=== PATIENT | female | born 1940 | race Caucasian/White ===

== ENCOUNTER 2020-09-30 22:15 | Emergency (ER) | payer MEDICARE, BC ==
[~2020-09-30 22:15] MED LIST: ALDACTONE25 MG PO; AMOX TR-K CLV1 EAC4 PO; ASPIR 8181 MG PO; AUGMENTIN 875-1 EACH PO; BMP Blood Test; CLEOCIN HCL300 MG PO; CORDARONE 200M200 MG PO; ELIQUIS 5 MG TAB5 MG PO; ELIQUIS5 MG PO; FERROUS SULFAT325 M2 PO; FUROSEMIDE40 MG PO; HYDRALAZINE HCL25 MG PO; HYDROCHLOROTHIA25 MG PO; IPRAT-ALBUT 0.5-3 ML INH; LASIX40 MG PO; LEVOTHYROXINE100 MCG PO; LIPITOR TAB 2020 MG PO; LISINOPRIL10 MG PO; LISINOPRIL2.5 MG PO; LOPRESSOR 25 MG25 MG PO; MECLIZINE HCL25 M1 PO; NORCO 5-325 TA1 EACH PO; NORVASC5 MG PO; PLAVIX75 MG PO; PREDNISONE 10 M10 MG PO; PREDNISONE10 M1 PO; PREDNISONE10 MG PO; PREDNISONE20 MG PO; PROTONIX40 MG PO; PULMICORT0.5 MG/21 INH; REQUIP0.25 MG PO; SINGULAIR10 MG PO; SYNTHROID 25 M25 MCG PO; THERAGRAN M TAB1 EA PO; TOPROL XL 25 MG25 MG PO; VENTOLIN HFA 66.7 GM INH; VISTARIL 50 MG50 MG PO; ZAROXOLYN/DIUL2.5 MG PO; ZESTRIL/PRINIVI10 MG PO; ZOFRAN4 MG PO
== END 2020-10-01 02:23 | disposition home or self-care (01) ==
LOC: ER1 22:15
DX: M79.671 Pain in right foot (principal); I48.91 Unspecified atrial fibrillation; I50.9 Heart failure, unspecified; Z88.2 Allergy status to sulfonamides
CPT/HCPCS: 73630; 99283

== ENCOUNTER 2020-10-18 12:18 | Inpatient (IN) | payer MEDICARE, BC ==
[~2020-10-18] VITALS: Ht 154.9 cm; Wt 89.4 kg
[2020-10-18 13:55] LABS: HEMOGLOBIN 9.1 gm/dl (12.3-15.3); RED BLOOD COUNT 3.61 M/UL (4.00-5.10); WHITE BLOOD COUNT 10.3 K/UL (4.5-11.0)
[2020-10-18 14:20] LABS: BUN/CREATININE RATIO 24 (0-10)
[2020-10-18] MEDS ORDERED: POTASSIUM CHLO20 ME1 PO (20:05)
[2020-10-18] MEDS ORDERED: ZAROXOLYN/DIUL2.5 MG PO (20:06)
[2020-10-18] MEDS ORDERED: LASIX40 MG PO (20:12)
[2020-10-18] MEDS ORDERED: HYDRALAZINE HCL25 MG PO (20:13)
[2020-10-19 01:06] LABS: RED BLOOD COUNT 3.53 M/UL (4.00-5.10); WHITE BLOOD COUNT 10.2 K/UL (4.5-11.0)
[2020-10-19 01:32] LABS: BUN/CREATININE RATIO 22 (0-10)
[2020-10-19] MEDS ORDERED: LEVOTHYROXINE75 MCG PO (07:23)
[2020-10-19] MEDS ORDERED: VITAMIN B-122500 MCG SL (20:07)
[2020-10-20 03:38] LABS: HEMOGLOBIN 9.2 gm/dl (12.3-15.3); RED BLOOD COUNT 3.61 M/UL (4.00-5.10); WHITE BLOOD COUNT 11.5 K/UL (4.5-11.0)
[2020-10-20 10:16] LABS: CREATININE, URINE 13.7 mg/dL (Not Estab.); MICROALB/CREAT RATIO <22 (0-29)
[2020-10-23] MEDS ORDERED: LASIX40 MG PO (09:16)
[2020-10-23] MEDS ORDERED: FERROUS SULFAT325 M2 PO (09:16)
[2020-10-23] MEDS ORDERED: STIMULANT LAXA1 EACH PO (09:16)
[2020-10-23] MEDS ORDERED: PREDNISONE 20 M20 MG PO (09:22)
[2020-10-23] MEDS ORDERED: PREDNISONE 5 MG5 MG PO (09:22)
[2020-10-23] MEDS ORDERED: PREDNISONE 10 M10 MG PO (09:22)
[2020-10-23] MEDS ORDERED: PREDNISONE 10 M10 MG GT (09:22)
== END 2020-10-23 13:15 | disposition home health service (06) | DRG 291 ==
LOC: ER1 12:18 → CDU 16:40 → MED SURG 4 16:40
PROVIDERS: Internal Medicine; Internal Medicine Nephrology; ADMIT Internal Medicine
PROC: B24BZZZ Ultrasonography of Heart with Aorta (ICD-10-PCS; principal; 2020-10-20)
DX: I13.0 Hypertensive heart and chronic kidney disease with heart failure and stage 1 through stage 4 chronic kidney disease, or unspecified chronic kidney disease (principal); I50.33 Acute on chronic diastolic (congestive) heart failure; E87.2 Acidosis; N17.9 Acute kidney failure, unspecified; Z68.41 Body mass index [BMI] 40.0-44.9, adult; J96.11 Chronic respiratory failure with hypoxia; Z20.822 Contact with and (suspected) exposure to COVID-19; I27.20 Pulmonary hypertension, unspecified; I34.0 Nonrheumatic mitral (valve) insufficiency; N18.30 Chronic kidney disease, stage 3 unspecified; D50.9 Iron deficiency anemia, unspecified; E66.01 Morbid (severe) obesity due to excess calories; E03.9 Hypothyroidism, unspecified; M10.9 Gout, unspecified; K59.00 Constipation, unspecified; E78.5 Hyperlipidemia, unspecified; I25.10 Atherosclerotic heart disease of native coronary artery without angina pectoris; I48.0 Paroxysmal atrial fibrillation; I25.2 Old myocardial infarction; Z82.49 Family history of ischemic heart disease and other diseases of the circulatory system; Z98.890 Other specified postprocedural states; Z88.1 Allergy status to other antibiotic agents; Z79.82 Long term (current) use of aspirin; E87.6 Hypokalemia
CPT/HCPCS: ECHO; 36415; 36600; 71045; 80048; 80053; 81001; 82043; 82550; 82553; 82570; 82728; 82803; 83540; 83550; 83735; 83874; 83880; 84132; 84156; 84484; 84550; 85025; 85027; 85610; 93005; 93306; 93971; 94640; 94664; 94760; 96365; 96366; 97161; 99285; J1120; J1756; J1940; J7030; U0002

== ENCOUNTER 2020-12-31 11:37 | Inpatient (IN) | payer MEDICARE, BC ==
[~2020-12-31] VITALS: Ht 154.9 cm; Wt 93.5 kg
[~2020-12-31 11:37] MED LIST changes: +LEVOTHYROXINE75 MCG PO; +POTASSIUM CHLO20 ME1 PO; +PREDNISONE 10 M10 MG GT; +PREDNISONE 20 M20 MG PO; +PREDNISONE 5 MG5 MG PO; +STIMULANT LAXA1 EACH PO; +VITAMIN B-122500 MCG SL
[2020-12-31 12:58] LABS: HEMOGLOBIN 10.4 gm/dl (12.3-15.3); RED BLOOD COUNT 3.77 M/UL (4.00-5.10); WHITE BLOOD COUNT 11.7 K/UL (4.5-11.0)
[2020-12-31 13:32] LABS: BUN/CREATININE RATIO 27 (0-10)
[2020-12-31] MEDS ORDERED: LASIX40 MG PO (17:56)
[2020-12-31] MEDS ORDERED: PULMICORT0.5 MG/21 INH (17:58)
[2020-12-31] MEDS ORDERED: ZAROXOLYN/DIUL2.5 MG PO (18:12)
[2021-01-01 04:17] LABS: HEMOGLOBIN 10.1 gm/dl (12.3-15.3); RED BLOOD COUNT 3.68 M/UL (4.00-5.10); WHITE BLOOD COUNT 11.6 K/UL (4.5-11.0)
[2021-01-02 07:03] LABS: HEMOGLOBIN 10.1 gm/dl (12.3-15.3); RED BLOOD COUNT 3.66 M/UL (4.00-5.10); WHITE BLOOD COUNT 11.5 K/UL (4.5-11.0)
[2021-01-03 06:11] LABS: HEMOGLOBIN 10.4 gm/dl (12.3-15.3); RED BLOOD COUNT 3.77 M/UL (4.00-5.10); WHITE BLOOD COUNT 10.5 K/UL (4.5-11.0)
[2021-01-05] MEDS ORDERED: LOPRESSOR 25 MG25 MG PO (12:33)
[2021-01-05] MEDS ORDERED: CEFUROXIME500 MG PO (12:37)
== END 2021-01-05 16:54 | disposition home or self-care (01) | DRG 291 ==
LOC: ER1 11:37 → MED SURG 4 15:44 → CDU 15:44 → MED SURG 4 17:34
PROVIDERS: Emergency Medicine; Internal Medicine; Physician Assistant; Physician Assistant Medical; ADMIT Internal Medicine
DX: I13.0 Hypertensive heart and chronic kidney disease with heart failure and stage 1 through stage 4 chronic kidney disease, or unspecified chronic kidney disease (principal); I50.33 Acute on chronic diastolic (congestive) heart failure; J96.11 Chronic respiratory failure with hypoxia; I48.20 Chronic atrial fibrillation, unspecified; N18.30 Chronic kidney disease, stage 3 unspecified; E03.9 Hypothyroidism, unspecified; E78.5 Hyperlipidemia, unspecified; I27.20 Pulmonary hypertension, unspecified; I25.10 Atherosclerotic heart disease of native coronary artery without angina pectoris; M10.9 Gout, unspecified; D53.9 Nutritional anemia, unspecified; D50.9 Iron deficiency anemia, unspecified; E86.0 Dehydration; Z90.49 Acquired absence of other specified parts of digestive tract; I25.2 Old myocardial infarction; Z88.6 Allergy status to analgesic agent; Z82.49 Family history of ischemic heart disease and other diseases of the circulatory system
CPT/HCPCS: 36415; 71045; 80048; 80053; 82550; 82553; 83605; 83690; 83735; 83880; 84132; 84439; 84443; 84484; 85025; 85027; 87040; 93005; 94640; 94664; 94760; 99285; J0696; J1120; J1940; U0002

== ENCOUNTER 2021-08-09 15:54 | Observation (INO) | payer MEDICARE, BC ==
[~2021-08-09] VITALS: Ht 157.5 cm; Wt 88.5 kg
[~2021-08-09 15:54] MED LIST changes: +CEFUROXIME500 MG PO; +PROAIR HFA8.5 GM INH
[2021-08-09 16:56] LABS: HEMOGLOBIN 11.8 gm/dl (12.3-15.3); RED BLOOD COUNT 3.92 M/UL (4.00-5.10); WHITE BLOOD COUNT 11.9 K/UL (4.5-11.0)
[2021-08-09 17:32] LABS: BUN/CREATININE RATIO 29 (0-10)
[2021-08-10 04:26] LABS: HEMOGLOBIN 10.7 gm/dl (12.3-15.3); RED BLOOD COUNT 3.67 M/UL (4.00-5.10); WHITE BLOOD COUNT 10.5 K/UL (4.5-11.0)
[2021-08-10] MEDS ORDERED: METOPROLOL TART25 MG PO (10:08)
[2021-08-10] MEDS ORDERED: FERROUS SULFAT325 MG PO (10:09)
[2021-08-10] MEDS ORDERED: HYDRALAZINE HCL25 MG PO (10:09)
[2021-08-10] MEDS ORDERED: ASCORBIC ACID500 MG PO (10:10)
[2021-08-10] MEDS ORDERED: SPIRONOLACTONE25 MG PO (10:10)
[2021-08-10] MEDS ORDERED: LOPRESSOR 50 MG50 MG PO (11:14)
[2021-08-10] MEDS ORDERED: CEFUROXIME250 MG PO (11:14)
[2021-08-10] MEDS ORDERED: SALINE NOSE SPR45 ML (11:18)
== END 2021-08-10 14:21 | disposition home or self-care (01) ==
LOC: ER1 15:54 → MED SURG 4 19:23 → CDU 19:23 → MED SURG 4 19:23
PROVIDERS: Emergency Medicine; ADMIT Internal Medicine Infectious Disease
DX: R04.0 Epistaxis (principal); Z20.822 Contact with and (suspected) exposure to COVID-19; I13.0 Hypertensive heart and chronic kidney disease with heart failure and stage 1 through stage 4 chronic kidney disease, or unspecified chronic kidney disease; I50.32 Chronic diastolic (congestive) heart failure; N18.30 Chronic kidney disease, stage 3 unspecified; I48.20 Chronic atrial fibrillation, unspecified; J96.11 Chronic respiratory failure with hypoxia; I25.10 Atherosclerotic heart disease of native coronary artery without angina pectoris; J44.9 Chronic obstructive pulmonary disease, unspecified; E78.5 Hyperlipidemia, unspecified; Z79.82 Long term (current) use of aspirin; Z79.899 Other long term (current) drug therapy; Z88.1 Allergy status to other antibiotic agents; Z88.2 Allergy status to sulfonamides
CPT/HCPCS: 36415; 71045; 80048; 80053; 81001; 82550; 82553; 83735; 83874; 83880; 84443; 84484; 85025; 85610; 85730; 93005; 94640; 94664; 94760; 96374; 96375; 99284; G0378; J0696; U0002

== ENCOUNTER 2021-11-24 14:42 | Emergency (ER) | payer MEDICARE, BC ==
[~2021-11-24 14:42] MED LIST changes: +ASCORBIC ACID500 MG PO; +CEFUROXIME250 MG PO; +FERROUS SULFAT325 MG PO; +LOPRESSOR 50 MG50 MG PO; +METOPROLOL TART25 MG PO; +SALINE NOSE SPR45 ML; +SPIRONOLACTONE25 MG PO
[2021-11-24] MEDS ORDERED: AMOX TR-K CLV1 EAC4 PO (17:43)
== END 2021-11-24 17:55 | disposition home or self-care (01) ==
LOC: ER1 14:42
DX: R04.0 Epistaxis (principal); I10 Essential (primary) hypertension; Z88.2 Allergy status to sulfonamides; Z87.891 Personal history of nicotine dependence; Z79.82 Long term (current) use of aspirin
CPT/HCPCS: 30903; 99283

== ENCOUNTER → 2022-03-21 | Outpatient (CLI) | payer MEDICARE, BC | LOC: ECHO 10:10 | DX: I48.91 Unspecified atrial fibrillation (principal); I25.118 Atherosclerotic heart disease of native coronary artery with other forms of angina pectoris; I27.20 Pulmonary hypertension, unspecified; I08.3 Combined rheumatic disorders of mitral, aortic and tricuspid valves | CPT/HCPCS: ECHO; 93306 ==

== ENCOUNTER 2022-03-27 17:35 | Inpatient (IN) | payer MEDICARE, BC ==
[~2022-03-27] VITALS: Ht 157.5 cm; Wt 81.7 kg
[~2022-03-27 17:35] MED LIST changes: -REQUIP0.25 MG PO; +ROPINIROLE HCL1 MG PO
[2022-03-27 19:34] LABS: HEMOGLOBIN 13.2 gm/dl (12.3-15.3); RED BLOOD COUNT 4.39 M/UL (4.00-5.10); WHITE BLOOD COUNT 18.7 K/UL (4.5-11.0)
[2022-03-28 03:41] LABS: HEMOGLOBIN 12.9 gm/dl (12.3-15.3); RED BLOOD COUNT 4.3 M/UL (4.00-5.10); WHITE BLOOD COUNT 17.9 K/UL (4.5-11.0)
[2022-03-28] MEDS ORDERED: METOPROLOL TART25 MG PO (09:32)
[2022-03-28] MEDS ORDERED: HYDRALAZINE HCL25 MG PO (09:33)
[2022-03-29 03:17] LABS: HEMOGLOBIN 13.6 gm/dl (12.3-15.3); RED BLOOD COUNT 4.51 M/UL (4.00-5.10); WHITE BLOOD COUNT 16.2 K/UL (4.5-11.0)
[2022-03-30 06:59] LABS: HEMOGLOBIN 14.2 gm/dl (12.3-15.3); RED BLOOD COUNT 4.73 M/UL (4.00-5.10); WHITE BLOOD COUNT 17.7 K/UL (4.5-11.0)
[2022-03-31 01:25] LABS: HEMOGLOBIN 13.2 gm/dl (12.3-15.3); RED BLOOD COUNT 4.44 M/UL (4.00-5.10); WHITE BLOOD COUNT 16.5 K/UL (4.5-11.0)
[2022-03-31] MEDS ORDERED: KLOR-CON M2020 MEQ PO (17:11)
[2022-03-31] MEDS ORDERED: FUROSEMIDE20 MG PO (17:11)
[2022-03-31] MEDS ORDERED: ATORVASTATIN CA20 MG PO (17:11)
[2022-03-31] MEDS ORDERED: LOPRESSOR 50 MG50 MG PO (17:11)
== END 2022-03-31 19:33 | disposition home or self-care (01) | DRG 291 ==
LOC: ER1 17:35 → CDU 21:47 → M/S 22:29
PROVIDERS: Internal Medicine; Preventive Medicine Occupational Medicine; ADMIT Internal Medicine
DX: I13.0 Hypertensive heart and chronic kidney disease with heart failure and stage 1 through stage 4 chronic kidney disease, or unspecified chronic kidney disease (principal); I50.33 Acute on chronic diastolic (congestive) heart failure; J96.21 Acute and chronic respiratory failure with hypoxia; I48.20 Chronic atrial fibrillation, unspecified; Z20.822 Contact with and (suspected) exposure to COVID-19; J43.9 Emphysema, unspecified; I27.20 Pulmonary hypertension, unspecified; I08.1 Rheumatic disorders of both mitral and tricuspid valves; D63.1 Anemia in chronic kidney disease; G25.81 Restless legs syndrome; E03.9 Hypothyroidism, unspecified; E78.5 Hyperlipidemia, unspecified; N18.30 Chronic kidney disease, stage 3 unspecified; I25.10 Atherosclerotic heart disease of native coronary artery without angina pectoris; E87.6 Hypokalemia; R04.0 Epistaxis; Z90.49 Acquired absence of other specified parts of digestive tract; Z82.49 Family history of ischemic heart disease and other diseases of the circulatory system; Z79.01 Long term (current) use of anticoagulants; Z95.5 Presence of coronary angioplasty implant and graft; Z99.81 Dependence on supplemental oxygen; Z88.2 Allergy status to sulfonamides; I25.2 Old myocardial infarction; Z87.891 Personal history of nicotine dependence; Z79.82 Long term (current) use of aspirin
CPT/HCPCS: 36415; 36600; 71045; 71046; 71250; 80048; 80053; 81001; 82550; 82553; 82803; 83605; 83690; 83735; 83880; 84100; 84484; 85025; 85610; 85652; 85730; 86140; 93005; 94664; 94760; 96374; 99285; J1650; J1940; U0002